=== PATIENT | male | born 1995 | race Caucasian/White ===

== ENCOUNTER 2017-12-14 18:29 | Emergency (ER) | payer OTHER ==
[~2017-12-14] VITALS: Ht 185.4 cm; Wt 88.7 kg
[~2017-12-14 18:29] MED LIST: ESCI1TAB9 PO
[2017-12-14 18:30] VITALS: TEMP 36.2; Ht 185.4 cm; Wt 88.7 kg
[2017-12-14] MEDS ORDERED: OXYCODONE/ACETAMINOPHEN 5-325 TAB PO STA (18:40)
[2017-12-14] MEDS ORDERED: LIDOCAINE HCL 2% JELLY 30 ML TUBE EXT ONE (18:45)
[2017-12-14] MEDS ORDERED: LIDOCAINE 2% JELLY 5 ML TUBE EXT ONE (19:00)
[2017-12-14] MEDS ORDERED: LORA-741 PO (19:24)
[2017-12-14] MEDS ORDERED: BACITRACIN OINT 15 GM TUBE ONE (19:28)
[2017-12-14] MEDS ORDERED: BACITRACIN OINT 15 GM TUBE EXT ONE (19:30)
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
--- NOTE | 2017-12-14 21:50 | DIAGNOSTIC IMAGING REPORT ---
R FOREARM 2 VIEWS ROUTINE CLINICAL HISTORY: Right forearm pain following injury. COMPARISON: Right forearm radiographs January 28, 2015. FINDINGS: Alignment of the right elbow is anatomic. There is no right elbow joint effusion. Right wrist is better depicted on the right hand radiographs. A 3 mm subcutaneous radiodensity of the dorsal medial right wrist favors a foreign body. A tiny bone fragment along the ulnar styloid is likely old. There is right forearm soft tissue swelling. IMPRESSION: 1. No acute fracture of the right radius or ulna. 2. 3 mm subcutaneous density projecting over the dorsal medial right wrist which may be within or on the patient and favors a foreign body/debris. Electronically signed by: Larry Dennison M.D. 12/14/2017 9:49 PM Dictated Date/Time: 12/14/2017 9:46 PM
--- NOTE | 2017-12-14 21:52 | DIAGNOSTIC IMAGING REPORT ---
R HAND MIN 3 VIEWS ROUTINE CLINICAL HISTORY: Right hand pain following injury. COMPARISON: Right hand radiographs February 22, 2015. FINDINGS: No acute fracture of the right hand is identified. An old avulsion fracture along the ulnar styloid is noted. A 3 mm radiodensity projecting over the subcutaneous tissues of the dorsal medial right wrist is noted. IMPRESSION: 1. No acute fracture or dislocation within the right hand. 2. 3 mm radiodensity projecting over the subcutaneous tissues of the dorsal medial right wrist which is either within or on the patient. This suggests a foreign body/debris. Electronically signed by: Larry Dennison M.D. 12/14/2017 9:51 PM Dictated Date/Time: 12/14/2017 9:49 PM
--- NOTE | 2017-12-14 21:55 | DIAGNOSTIC IMAGING REPORT ---
L KNEE 3 VIEWS CLINICAL HISTORY: Left knee pain following trauma. COMPARISON: Left knee radiographs February 06, 2012. FINDINGS: Alignment of the left knee is anatomic. There is no acute fracture. There is a suspected small left knee joint effusion. There is mild prepatellar soft tissue swelling. IMPRESSION: 1. No acute fracture. 2. Mild prepatellar soft tissue swelling and a suspected small left knee joint effusion. Electronically signed by: Larry Dennison M.D. 12/14/2017 9:53 PM Dictated Date/Time: 12/14/2017 9:52 PM
--- NOTE | 2017-12-14 21:58 | DIAGNOSTIC IMAGING REPORT ---
R KNEE 3 VIEWS CLINICAL HISTORY: Right knee pain following trauma. COMPARISON: Right femur radiographs January 28, 2015. FINDINGS: Alignment of the right knee is anatomic. There is no acute fracture. Joint spaces are preserved. A sclerotic lesion within the diaphysis of the distal right femur is unchanged. This is benign. IMPRESSION: No acute fracture. Electronically signed by: Larry Dennison M.D. 12/14/2017 9:56 PM Dictated Date/Time: 12/14/2017 9:55 PM
[2017-12-14 22:11] VITALS: BP 145/70; PULSE 79; O2SAT 96
[2017-12-14] MEDS ORDERED: PERCOCET HOME PACK PO ONE (22:15)
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
== END 2017-12-14 22:15 | disposition home or self-care (01) ==
LOC: C.EDB 18:29 → C.EDD 22:15
DX: S40.211A Abrasion of right shoulder, initial encounter (principal); S40.811A Abrasion of right upper arm, initial encounter; S60.511A Abrasion of right hand, initial encounter; S50.312A Abrasion of left elbow, initial encounter; S60.512A Abrasion of left hand, initial encounter; S80.211A Abrasion, right knee, initial encounter; S80.212A Abrasion, left knee, initial encounter; S20.319A Abrasion of unspecified front wall of thorax, initial encounter; V86.55XA Driver of 3- or 4- wheeled all-terrain vehicle (ATV) injured in nontraffic accident, initial encounter; M25.462 Effusion, left knee; F17.200 Nicotine dependence, unspecified, uncomplicated; Z79.899 Other long term (current) drug therapy